=== PATIENT | female | born 1945 | race Caucasian/White ===

== ENCOUNTER → 2016-10-29 | Outpatient (CLI) | payer MEDICARE | END | disposition home or self-care (01) | LOC: CFH 14:05 | PROVIDERS: ATTEND Family Medicine | DX: Z12.31 Encounter for screening mammogram for malignant neoplasm of breast (principal) | CPT/HCPCS: G0202 ==

== ENCOUNTER → 2017-07-20 | Outpatient (CLI) | payer MEDICARE ==
[~2017-07-20] MED LIST: AZEL23SP NS; CHOL500015 PO; DEXT1TAB3 PO; DULO30CA2 PO; FENO200C PO; GLUC1CAP18 PO; LOVA20TA2 PO; MOME13HF INH; MULT-658 PO; OMEG1CAP39 PO; OMEP-110 PO; POTA20TA89 PO; RANI150T4 PO; VALS1TAB26 PO
[2017-07-20 12:11] LABS: HEMATOCRIT 40.5 % (34.6-47.8); HEMOGLOBIN 13.6 g/dL (11.7-16.4)
[2017-07-20 12:23] LABS: ASPARTATE AMINO TRANSFERASE 25 U/L (15-37); BLOOD UREA NITROGEN 27 mg/dL (7-18)
== END ==
LOC: STAR 10:44
PROVIDERS: ATTEND Internal Medicine Critical Care Medicine
DX: Z01.818 Encounter for other preprocedural examination (principal); R06.02 Shortness of breath; R05 Cough
CPT/HCPCS: 36415; 80053; 85025; 85610; 85730; 93005

== ENCOUNTER 2017-07-28 07:19 | Day surgery (SDC) | payer MEDICARE ==
[~2017-07-28] VITALS: Ht 149.9 cm; Wt 62.0 kg
[2017-07-28] MEDS ORDERED: MIDAZOLAM 1 MG/ML, 5ML ONE ×2 (07:39)
[2017-07-28] MEDS ORDERED: FENTANYL PF 100 MCG/2ML ONE ×2 (07:40)
[2017-07-28] MEDS ORDERED: SODIUM CHLORIDE 0.9% 1,000 ML IV SCH (08:06)
[2017-07-28] MEDS ORDERED: LIDOCAINE 4% TOPICAL SOLUTION 50 ML ONE (12:00)
[2017-07-28] MEDS ORDERED: LIDOCAINE 2%, 20ML ONE (12:00)
[2017-07-28] MEDS ORDERED: LIDOCAINE GEL 2%, 5ML ONE (12:00)
== END 2017-07-28 13:10 ==
LOC: OUT 07:19
PROVIDERS: ATTEND Internal Medicine Critical Care Medicine
DX: J98.4 Other disorders of lung (principal); I10 Essential (primary) hypertension; J45.909 Unspecified asthma, uncomplicated
CPT/HCPCS: 31624; 87015; 87070; 87102; 87116; 87205; 87206; 88112; 88305; 99152; 99153; J2250; J3010; J3490; 31622

== ENCOUNTER → 2018-03-22 | Outpatient (CLI) | payer MEDICARE ==
[~2018-03-22] MED LIST changes: +OMNIPAQUE 350 MG/ML, 100ML BOTTLE ONE
== END | disposition home or self-care (01) ==
LOC: CFH 08:41 → EDSTATUS 09:15
PROVIDERS: ATTEND Family Medicine
DX: J98.11 Atelectasis (principal); I77.810 Thoracic aortic ectasia; Z90.49 Acquired absence of other specified parts of digestive tract
CPT/HCPCS: 71260; Q9967

== ENCOUNTER → 2018-05-23 | Outpatient (CLI) | payer MEDICARE ==
[~2018-05-23] MED LIST changes: -OMNIPAQUE 350 MG/ML, 100ML BOTTLE ONE; +REGADENOSON 0.4 MG/5 ML SYRINGE ONE
== END | disposition home or self-care (01) ==
LOC: CFH 06:57
PROVIDERS: ATTEND Internal Medicine Cardiovascular Disease
DX: I35.8 Other nonrheumatic aortic valve disorders (principal); I10 Essential (primary) hypertension; E78.5 Hyperlipidemia, unspecified; C50.919 Malignant neoplasm of unspecified site of unspecified female breast
CPT/HCPCS: 78452; 93017; 93306; A9502; J2785

== ENCOUNTER → 2019-12-12 | Outpatient (CLI) | payer MEDICARE ==
[~2019-12-12] MED LIST changes: -REGADENOSON 0.4 MG/5 ML SYRINGE ONE
== END | disposition home or self-care (01) ==
LOC: CFH 12:35
PROVIDERS: ATTEND Family Medicine
DX: C50.919 Malignant neoplasm of unspecified site of unspecified female breast (principal); R92.1 Mammographic calcification found on diagnostic imaging of breast
CPT/HCPCS: 77066; G0279

== ENCOUNTER 2021-02-26 09:03 | Emergency (ER) | payer MEDICARE ==
[~2021-02-26] VITALS: Ht 149.9 cm; Wt 66.1 kg
--- NOTE | 2021-02-26 09:45 | NUR ---
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
--- NOTE | 2021-02-26 10:01 | NUR ---
CC UA OBTAINED-SENT TO LAB
[2021-02-26 10:05] LABS: MICROSCOPIC NOT IND
[2021-02-26 10:48] LABS: BASOPHILS % (AUTO) 0 % (0-1); EOSINOPHILS % (AUTO) 0 % (1-7); LYMPHOCYTES % (AUTO) 24 % (22-44); MEAN CORPUSCULAR HEMOGLOBIN 31.6 pg (27.0-34.8); MEAN CORPUSCULAR HGB CONC 33.6 g/dL (32.4-35.8); MEAN PLATELET VOLUME 10.8 fL (7.4-10.4); MONOCYTES % (AUTO) 9 % (2-9); NEUTROPHILS % (AUTO) 67 % (42-75); PLATELET COUNT 304 x10^3/uL (130-400); RED BLOOD COUNT 4.41 x10^6/uL (3.82-5.3); RED CELL DISTRIBUTION WIDTH 13.8 % (9.6-15.2)
[2021-02-26 10:58] LABS: ANION GAP 6 mmol/L (5-15); CALCIUM 10.7 mg/dL (8.5-10.1); CHLORIDE 106 mmol/L (98-107); CREATININE 0.84 mg/dL (0.55-1.02)
[2021-02-26 10:59] LABS: ALANINE AMINOTRANSFERASE 42 U/L (12-78); ALBUMIN 3.8 g/dL (3.4-5.0)
[2021-02-26 11:01] LABS: ALKALINE PHOSPHATASE 63 U/L (45-117); BILIRUBIN,TOTAL 0.9 mg/dL (0.2-1.0); TOTAL PROTEIN 7.7 g/dL (6.4-8.2)
--- NOTE | 2021-02-26 11:14 | NUR ---
CT CALLED TO EXPEDITE EXAM REPEAT VITALS UNREMARKBLE IS PATIENTS EXAM UPDATED ON ESTIMATED POC
--- NOTE | 2021-02-26 12:05 | NUR ---
TO CT SCAN
[2021-02-26] MEDS ORDERED: OMNIPAQUE 350 MG/ML, 100ML BOTTLE ONE (12:18)
[2021-02-26 13:37] VITALS: BP 132/79
== END 2021-02-26 13:39 | disposition home or self-care (01) ==
LOC: ED 10:51
DX: R35.8 Other polyuria (principal); R10.31 Right lower quadrant pain; E83.52 Hypercalcemia; R19.7 Diarrhea, unspecified; M54.5 Low back pain
CPT/HCPCS: 36415; 74177; 80053; 81003; 83690; 85025; 99285; Q9967